=== PATIENT | male | born 1990 | race Caucasian/White ===

== ENCOUNTER 2016-12-23 03:07 | Emergency (ER) | payer OTHER ==
[~2016-12-23] VITALS: Ht 177.8 cm; Wt 115.7 kg
[~2016-12-23 03:07] MED LIST: GLYC15SO12 OP
[2016-12-23 03:11] VITALS: BP 148/87
--- NOTE | 2016-12-23 03:52 | NUR ---
PATIENT AMBULATED TO ER BED 7.
--- NOTE | 2016-12-23 03:57 | NUR ---
PATIENT PRESENTS TO ED WITH CUT LIP ON LEFT SIDE FROM LIP NOSE ABOUT 1 1/2 INCHES, OPEN DOOR AND HIT LIP ABOUT AN HR AGO . PT DENIES N/V/D; AAOX4 WITH EVEN AND STEADY GAIT; LUNGS CLEAR BL; HR EVEN AND REGULAR; PT DENIES ANY FEVER, CP, SOB, OR COUGH AT THIS TIME; PATIENT STATES PAIN OF 8/10 AT THIS TIME; VSS; PATIENT POSITIONED FOR COMFORT; HOB ELEVATED; BEDRAILS UP X2; BED DOWN. ER MD MADE AWARE OF PT STATUS.
[2016-12-23] MEDS ORDERED: LIDOCAINE 1% 500 MG/50 ML VIAL INJ ONE (04:05)
[2016-12-23] MEDS ORDERED: LIDOCAINE 1% ED 50 ML ONE (04:07)
--- NOTE | 2016-12-23 04:20 | NUR ---
PATIENT BEING EVALUATED BY DR. MORIN.
[2016-12-23] MEDS ORDERED: BACITRACIN OINT 500 UNITS/GM PKT TP ONE (05:12)
[2016-12-23 05:26] VITALS: BP 132/82
== END 2016-12-23 05:26 | disposition home or self-care (01) ==
LOC: MED 03:07
DX: S01.511A Laceration without foreign body of lip, initial encounter (principal); X58.XXXA Exposure to other specified factors, initial encounter; Y93.89 Activity, other specified; Y92.89 Other specified places as the place of occurrence of the external cause; Y99.8 Other external cause status
CPT/HCPCS: 12011; 99283; J2001

== ENCOUNTER 2022-10-09 00:14 | Emergency (ER) | payer SELFPAY ==
[~2022-10-09] VITALS: Ht 180.3 cm; Wt 108.9 kg
[~2022-10-09 00:14] MED LIST changes: -GLYC15SO12 OP; +PEG15DRO10 OP
[2022-10-09 00:41] VITALS: BP 147/83
--- NOTE | 2022-10-09 02:40 | NUR ---
PT TO BED 12
--- NOTE | 2022-10-09 02:55 | NUR ---
DR. MORIN AT BEDSIDE
[2022-10-09] MEDS ORDERED: IBUP-2213 PO (02:57)
[2022-10-09] MEDS ORDERED: CEPH-588 PO (02:57)
[2022-10-09 03:00] VITALS: BP 132/78
--- NOTE | 2022-10-09 03:00 | NUR ---
Patient discharged with v/s stable. Written and verbal after care instructions given and explained. Patient alert, oriented and verbalized understanding of instructions. Ambulatory with steady gait. All questions addressed prior to discharge. ID band removed. Patient advised to follow up with PMD. Rx of KEFLEX, MOTRIN given. Patient educated on indication of medication including possible reaction and side effects. Opportunity to ask questions provided and answered.
== END 2022-10-09 03:00 | disposition home or self-care (01) ==
LOC: MED 00:14
DX: L03.311 Cellulitis of abdominal wall (principal); Z79.899 Other long term (current) drug therapy
CPT/HCPCS: 99283

== ENCOUNTER 2022-11-20 00:30 | Emergency (ER) | payer SELFPAY ==
[~2022-11-20] VITALS: Ht 180.3 cm; Wt 111.1 kg
[~2022-11-20 00:30] MED LIST changes: +CEPH-588 PO; +IBUP-2213 PO
[2022-11-20 00:50] VITALS: BP 118/75
--- NOTE | 2022-11-20 01:50 | NUR ---
Pt called no response.
--- NOTE | 2022-11-20 01:53 | NUR ---
Pt called no response
[2022-11-20 01:54] VITALS: BP 118/75
--- NOTE | 2022-11-20 01:54 | NUR ---
Pt left without being seen by ERMD
[2022-11-21] MEDS ORDERED: CIPR500T4 PO (00:35)
[2022-11-21] MEDS ORDERED: NAPR-54 PO (00:40)
== END 2022-11-20 01:54 | disposition left against medical advice (07) ==
LOC: MED 00:30
DX: N50.811 Right testicular pain (principal); N50.89 Other specified disorders of the male genital organs; Z53.21 Procedure and treatment not carried out due to patient leaving prior to being seen by health care provider
CPT/HCPCS: 99281

== ENCOUNTER 2022-11-20 23:20 | Emergency (ER) | payer SELFPAY ==
[~2022-11-20] VITALS: Ht 180.3 cm; Wt 111.1 kg
[2022-11-20 23:29] VITALS: BP 143/87
--- NOTE | 2022-11-20 23:34 | NUR ---
pt to lobby to a/w evalution. urine cup provided.
[2022-11-20 23:59] VITALS: BP 122/70
--- NOTE | 2022-11-21 00:03 | NUR ---
Received patient to ER w/ c/o right testicular pain ongoing x2-3 days. Denies any trauma, hematuria, or dysuria. Introduced self to patient, positioned for comfort. Bed to low position sr up, continue to monitor.
[2022-11-21] MEDS ORDERED: CIPR500T4 PO (00:35)
[2022-11-21] MEDS ORDERED: NAPR-54 PO (00:40)
--- NOTE | 2022-11-21 00:46 | NUR ---
Patient ok to d/c home. Given aci and rx, verbalized understanding of f/u care and taking rx medications.
== END 2022-11-21 00:46 | disposition home or self-care (01) ==
LOC: MED 23:20
DX: N45.1 Epididymitis (principal); Z79.1 Long term (current) use of non-steroidal anti-inflammatories (NSAID); Z79.2 Long term (current) use of antibiotics
CPT/HCPCS: 99283